=== PATIENT | female | born 1980 | race American Indian/Alaskan Native ===

== ENCOUNTER 2020-08-04 19:30 | Emergency (ER) | payer MEDICAID, OTHER ==
[2020-08-04 19:46] VITALS: BP 118/80
[2020-08-04] MEDS ORDERED: IBUPROFEN 800 MG TAB PO ONE (20:40)
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
[2020-08-04] MEDS ORDERED: BUTALB/ACETAMINOPHEN/CAFFEINE TAB PO ONE (20:47)
== END 2020-08-04 21:20 | disposition home or self-care (01) ==
LOC: ED 19:30
DX: S16.1XXA Strain of muscle, fascia and tendon at neck level, initial encounter (principal); G44.209 Tension-type headache, unspecified, not intractable; I10 Essential (primary) hypertension; J45.909 Unspecified asthma, uncomplicated; F17.200 Nicotine dependence, unspecified, uncomplicated; Z79.899 Other long term (current) drug therapy; V89.2XXA Person injured in unspecified motor-vehicle accident, traffic, initial encounter; Y93.89 Activity, other specified; Y92.410 Unspecified street and highway as the place of occurrence of the external cause; Y99.8 Other external cause status
CPT/HCPCS: 99282